=== PATIENT | male | born 1945 | race Caucasian/White ===

== ENCOUNTER 2018-03-21 17:34 | Emergency (ER) | payer MEDICARE, MEDICAID ==
[~2018-03-21] VITALS: Ht 170.2 cm; Wt 59.1 kg
[2018-03-21 17:52] VITALS: Ht 170.2 cm; Wt 59.1 kg
[2018-03-21] MEDS ORDERED: LIPITOR20 MG PO (18:00)
[2018-03-21] MEDS ORDERED: DEPAKOTE125 MG PO (18:00)
[2018-03-21] MEDS ORDERED: RISPERDAL1 MG PO (18:01)
[2018-03-21] MEDS ORDERED: XANAX0.5 MG PO (18:01)
[2018-03-21 18:11] LABS: BASOPHILS 0.4 % (0-2); EOSINOPHILS 0.3 % (0-7); HEMATOCRIT 43.7 % (42.0-54.0); HEMOGLOBIN 14.9 g/dL (13.5-17.5); IMMATURE GRANULOCYTES 0.2 % (0-5); LYMPHOCYTES 19.3 % (15-50); MCH 30.6 pg (26.0-34.0); MCHC 34.1 g/dL (31.0-37.0); MCV 89.7 fL (80.0-100.0); MEAN PLATELET VOLUME 11.4 fL (7.4-10.4); MONOCYTES 12.3 % (2-11); NEUTROPHILS 67.5 % (40-80); PLATELET COUNT 454 10x3/uL (130-400); RBC 4.87 10x6/uL (4.20-6.10); RDW 15.1 % (11.5-14.5)
[2018-03-21 18:34] LABS: APTT 34.9 SECONDS (22.8-39.4); INR 1.1 (0.85-1.17); PROTIME 13.7 SECONDS (11.6-15.0)
[2018-03-21 18:44] LABS: ALBUMIN 3.2 g/dL (3.4-5.0); ALKALINE PHOSPHATASE 103 U/L (46-116); ALT (SGPT) 16 U/L (10-68); BILIRUBIN - TOTAL 0.51 mg/dL (0.2-1.3); CALC OSMOLALITY 271 mosm/kg (275-300); CALCIUM 8.3 mg/dL (8.5-10.1); CARBON DIOXIDE 29.9 mmol/L (21.0-32.0); CHLORIDE - SERUM 102 mmol/L (98-107); CREATININE - SERUM 0.9 mg/dL (0.6-1.3); GLUCOSE 107 mg/dL (74-106); POTASSIUM - SERUM 4.1 mmol/L (3.5-5.1); PROTEIN - SERUM 6.9 g/dL (6.4-8.2); SODIUM 136 mmol/L (136-145); UREA NITROGEN 12 mg/dL (7-18); eGFR NON AFRICAN AMERICAN 87 mL/min (90-120)
[2018-03-21 22:08] VITALS: BP 157/80
== END 2018-03-21 22:34 | disposition other institution (70) ==
LOC: D.ER 17:34
PROVIDERS: Family Medicine
DX: I63.9 Cerebral infarction, unspecified (principal); G81.94 Hemiplegia, unspecified affecting left nondominant side; R29.810 Facial weakness; Z92.82 Status post administration of tPA (rtPA) in a different facility within the last 24 hours prior to admission to current facility; R51 Headache; J44.9 Chronic obstructive pulmonary disease, unspecified

== ENCOUNTER 2018-06-29 14:05 | Emergency (ER) | payer MEDICARE, MEDICAID ==
[~2018-06-29] VITALS: Ht 170.2 cm; Wt 56.8 kg
[~2018-06-29 14:05] MED LIST: DEPAKOTE125 MG PO; LIPITOR20 MG PO; RISPERDAL1 MG PO; XANAX0.5 MG PO
[2018-06-29 14:16] VITALS: Ht 170.2 cm; Wt 56.8 kg
[2018-06-29] MEDS ORDERED: KLONOPIN0.5 MG PO (14:19)
[2018-06-29] MEDS ORDERED: BAYER CHEWABLE81 MG PO (14:19)
[2018-06-29] MEDS ORDERED: LISINOPRIL10 MG PO (14:20)
[2018-06-29] MEDS ORDERED: CARAFATE1 G PO (14:20)
[2018-06-29] MEDS ORDERED: PROTONIX40 MG PO (14:20)
[2018-06-29] MEDS ORDERED: FLOMAX0.4 MG PO (14:21)
[2018-06-29] MEDS ORDERED: TEMAZEPAM30 MG PO (14:21)
[2018-06-29 15:00] LABS: ALBUMIN 3.3 g/dL (3.4-5.0); ALKALINE PHOSPHATASE 123 U/L (46-116); ALT (SGPT) 22 U/L (10-68); AMYLASE - SERUM 72 U/L (25-115); BILIRUBIN - TOTAL 0.62 mg/dL (0.2-1.3); CALC OSMOLALITY 275 mosm/kg (275-300); CALCIUM 8.4 mg/dL (8.5-10.1); CARBON DIOXIDE 29.7 mmol/L (21.0-32.0); CHLORIDE - SERUM 103 mmol/L (98-107); GLUCOSE 91 mg/dL (74-106); LIPASE 92 U/L (73-393); POTASSIUM - SERUM 4.2 mmol/L (3.5-5.1); PROTEIN - SERUM 7.3 g/dL (6.4-8.2); SODIUM 138 mmol/L (136-145); UREA NITROGEN 13 mg/dL (7-18); eGFR NON AFRICAN AMERICAN 77 mL/min (90-120)
[2018-06-29 15:29] LABS: HEMATOCRIT 45.1 % (42.0-54.0); HEMOGLOBIN 15.5 g/dL (13.5-17.5); MCH 29.8 pg (26.0-34.0); MCHC 34.4 g/dL (31.0-37.0); MCV 86.7 fL (80.0-100.0); PLATELET COUNT 378 10x3/uL (130-400); RDW 17.7 % (11.5-14.5); WBC 9.2 10x3/uL (4.8-10.8)
[2018-06-29 15:36] LABS: APPEARANCE CLEAR (CLEAR); BILIRUBIN NEGATIVE (NEGATIVE); COLOR YELLOW (YELLOW); GLUCOSE NEGATIVE (NEGATIVE); KETONE SMALL mg/dL (NEGATIVE); NITRITE NEGATIVE (NEGATIVE); PROTEIN NEGATIVE (NEGATIVE); SPECIFIC GRAVITY 1.015 (1.005-1.020); UROBILINOGEN NORMAL (NORMAL)
[2018-06-29] MEDS ORDERED: TORADOL10 MG PO (16:39)
[2018-06-29 17:14] VITALS: BP 149/80
[2018-06-29 17:48] LABS: LYMPHOCYTES 14 % (15-50); MONOCYTES 13 % (2-11); NEUTROPHILS 71 % (40-80); PLATELET ESTIMATE NORMAL
== END 2018-06-29 17:15 | disposition home or self-care (01) ==
LOC: D.ER 14:05
PROVIDERS: Family Medicine
DX: R10.32 Left lower quadrant pain (principal); J44.9 Chronic obstructive pulmonary disease, unspecified; I10 Essential (primary) hypertension

== ENCOUNTER 2019-01-29 14:43 | Emergency (ER) | payer MEDICARE, MEDICAID ==
[~2019-01-29] VITALS: Ht 170.2 cm; Wt 54.5 kg
[~2019-01-29 14:43] MED LIST changes: +BAYER CHEWABLE81 MG PO; +CARAFATE1 G PO; +FLOMAX0.4 MG PO; +KLONOPIN0.5 MG PO; +LISINOPRIL10 MG PO; +PROTONIX40 MG PO; +TEMAZEPAM30 MG PO; +TORADOL10 MG PO
[2019-01-29 14:48] VITALS: Ht 170.2 cm; Wt 54.5 kg
[2019-01-29 15:23] LABS: BASOPHILS 0.5 % (0-2); EOSINOPHILS 0.3 % (0-7); HEMATOCRIT 46.7 % (42.0-54.0); HEMOGLOBIN 15.4 g/dL (13.5-17.5); IMMATURE GRANULOCYTES 0.4 % (0-5); LYMPHOCYTES 14.4 % (15-50); MCH 30.1 pg (26.0-34.0); MCV 91.2 fL (80.0-100.0); MEAN PLATELET VOLUME 11.4 fL (7.4-10.4); MONOCYTES 7.8 % (2-11); NEUTROPHILS 76.6 % (40-80); PLATELET COUNT 331 10x3/uL (130-400); RBC 5.12 10x6/uL (4.20-6.10); RDW 15.6 % (11.5-14.5); WBC 10.3 10x3/uL (4.8-10.8)
[2019-01-29 15:36] LABS: ALBUMIN 3.5 g/dL (3.4-5.0); ALKALINE PHOSPHATASE 111 U/L (46-116); ALT (SGPT) 24 U/L (10-68); CALC OSMOLALITY 273 mosm/kg (275-300); CALCIUM 8.6 mg/dL (8.5-10.1); CHLORIDE - SERUM 103 mmol/L (98-107); CREATININE - SERUM 0.9 mg/dL (0.6-1.3); GLUCOSE 85 mg/dL (74-106); PROTEIN - SERUM 7.5 g/dL (6.4-8.2); SODIUM 138 mmol/L (136-145); UREA NITROGEN 11 mg/dL (7-18); eGFR NON AFRICAN AMERICAN 87 mL/min (90-120)
[2019-01-29 15:48] LABS: APTT 34.4 SECONDS (22.8-39.4); CKMB 1.6 U/L (0.0-3.6); CREATINE KINASE 120 UL (21-232); INR 1.06 (0.85-1.17); MAGNESIUM - SERUM 1.9 mg/dL (1.8-2.4); POTASSIUM - SERUM 5.9 mmol/L (3.5-5.1); PROTIME 13.3 SECONDS (11.6-15.0); THYROID STIMULATING HORMONE 0.47 uIU/mL (0.36-3.74); TROPONIN-I < 0.017 ng/mL (0.000-0.060)
[2019-01-29 17:35] VITALS: BP 136/80
== END 2019-01-29 17:35 | disposition home or self-care (01) ==
LOC: D.ER 14:43
PROVIDERS: Family Medicine
DX: G43.909 Migraine, unspecified, not intractable, without status migrainosus (principal)

== ENCOUNTER 2019-10-28 15:04 | Emergency (ER) | payer MEDICARE, MEDICAID ==
[~2019-10-28] VITALS: Ht 170.2 cm; Wt 56.8 kg
[2019-10-28 15:09] VITALS: Ht 170.2 cm; Wt 56.8 kg
[2019-10-28 16:52] VITALS: BP 148/78
== END 2019-10-28 16:52 | disposition home or self-care (01) ==
LOC: D.ER 15:04
DX: R51 Headache (principal); Z86.73 Personal history of transient ischemic attack (TIA), and cerebral infarction without residual deficits; Z95.0 Presence of cardiac pacemaker; I10 Essential (primary) hypertension; J44.9 Chronic obstructive pulmonary disease, unspecified; K21.9 Gastro-esophageal reflux disease without esophagitis

== ENCOUNTER 2019-12-03 10:48 | Emergency (ER) | payer MEDICARE, MEDICAID ==
[2019-12-03 10:51] VITALS: BP 147/73; Ht 170.2 cm
[2019-12-03 11:21] LABS: BASOPHILS 0.5 % (0-2); EOSINOPHILS 0.6 % (0-7); HEMATOCRIT 47.7 % (42.0-54.0); HEMOGLOBIN 15.7 g/dL (13.5-17.5); IMMATURE GRANULOCYTES 0.2 % (0-5); LYMPHOCYTES 16.7 % (15-50); MCH 30.3 pg (26.0-34.0); MCHC 32.9 g/dL (31.0-37.0); MCV 91.9 fL (80.0-100.0); MEAN PLATELET VOLUME 11.1 fL (7.4-10.4); MONOCYTES 10.4 % (2-11); NEUTROPHILS 71.6 % (40-80); RBC 5.19 10x6/uL (4.20-6.10); RDW 15.9 % (11.5-14.5); WBC 8.8 10x3/uL (4.8-10.8)
[2019-12-03 11:22] LABS: PLATELET COUNT 579 10x3/uL (130-400)
[2019-12-03 11:28] LABS: CALC OSMOLALITY 277 mosm/kg (275-300); CALCIUM 8.7 mg/dL (8.5-10.1); CARBON DIOXIDE 32.6 mmol/L (21.0-32.0); CHLORIDE - SERUM 104 mmol/L (98-107); GLUCOSE 107 mg/dL (74-106); POTASSIUM - SERUM 4.5 mmol/L (3.5-5.1); SODIUM 139 mmol/L (136-145); UREA NITROGEN 12 mg/dL (7-18); eGFR NON AFRICAN AMERICAN 77 mL/min (90-120)
[2019-12-03 11:37] LABS: ALBUMIN 3.4 g/dL (3.4-5.0); ALKALINE PHOSPHATASE 117 U/L (30-120); ALT (SGPT) 20 U/L (10-68); AMYLASE - SERUM 105 U/L (25-115); BILIRUBIN - TOTAL 0.88 mg/dL (0.2-1.3); LIPASE 83 U/L (73-393); PROTEIN - SERUM 7.5 g/dL (6.4-8.2); TROPONIN-I < 0.017 ng/mL (0.000-0.060)
== END 2019-12-03 12:49 | disposition left against medical advice (07) ==
LOC: D.ER 10:48
PROVIDERS: Family Medicine
DX: R10.9 Unspecified abdominal pain (principal)